=== PATIENT | male | born 1950 | race Caucasian/White ===

== ENCOUNTER 2025-04-09 11:26 | Inpatient (IN) | payer MEDICARE, BC, SELFPAY ==
[2025-04-09] VITALS (35 sets, daily range): BP systolic 78–188; BP diastolic 49–99; BMI 28.2; BMI 27.3
[2025-04-09] MEDS: NSS 1000 IV ×2 (07:20→14:31)
[2025-04-09] MEDS: ZOFRAN 4 MG IV ×2 (07:20→10:00)
[2025-04-09] MEDS: DILAUDID 1 MG IV (07:21)
[2025-04-09] MEDS: OMNIPAQUE 50 ML PO (07:21)
[2025-04-09 07:41] LABS: AST (SGOT) 24 U/L (17-59); Albumin 4.0 g/dl (3.5-5.0); Alkaline Phosphatase 196 U/L (38-126); Blood Urea Nitrogen 30 mg/dl (9-20); Calcium 9.5 mg/dl (8.4-10.2); Carbon Dioxide 25 mmol/L (22-30); Chloride 99 mmol/L (98-107); Estimated Creatinine Clearance 51 ml/min; Glucose 237 mg/dl (70-99); Hematocrit 43.0 % (39.0-52.0); Hemoglobin 13.1 g/dL (13.0-18.0); Lipase 58 U/L (23-300); Mean Corp Hgb Conc. 30.5 g/dL (33.0-37.0); Mean Corpuscular Volume 88.3 fL (80.0-94.0); Platelet Count 206 10^3/uL (130-400); Potassium 3.4 mmol/L (3.5-5.1); Red Cell Dist. Width 16.4 % (11.5-14.5); Sodium 138 mmol/L (135-145); Total Protein 6.9 g/dl (6.3-8.2); eGFR 53.40
[2025-04-09 07:42] LABS: INR 1.43; PT 17.6 Sec (11.4-14.6)
[2025-04-09 08:10] LABS: ALT (SGPT) 31 U/L (0-50)
[2025-04-09 08:37] LABS: Nucleated Red Blood Cells % 0 % (-)
--- NOTE | 2025-04-09 10:24 | ED.GENMED ---
History of Present Illness
General
Chief Complaint: Abdominal Pain
Source: patient
Time Seen by Provider: 04/09/25 07:04
History of Present Illness
History of Present Illness:
Note:
CHIEF COMPLAINT(S)
Abdominal pain
HISTORY OF PRESENT ILLNESS
The patient is a 74-year-old male with a history of chronic pancreatitis, multiple abdominal surgeries including gallbladder removal, and gastrointestinal complications requiring bypass surgery. He presents with abdominal pain that began on
night and persists. The pain is described as severe, with a subjective rating of eight or nine out of ten. The patient denies hematochezia or melena but reports a history of dark vomit. He has experienced significant weight loss in the past,
attributed to pancreatitis. He was last admitted to [facility] approximately one month ago for similar symptoms and was diagnosed with a small bowel obstruction at that time. There are concerns about altered gastrointestinal anatomy due to
prior surgeries.
Additional historian
Spouse states that he has had small bowel obstruction in the past.
Past medical history
Chronic pancreatitis, pancreatic pseudocyst, common bile duct obstruction and stricture, small bowel stricture, small bowel obstruction, diabetes, hypertension
REVIEW OF SYSTEMS
- Gastrointestinal: Abdominal pain, history of pancreatitis, prior surgeries including gallbladder removal, dark vomit.
- Neurological: Alert and oriented.
PHYSICAL EXAM
General: Alert, no acute distress.
Skin: Warm, dry.
Head: Normocephalic, atraumatic.
Neck: Supple, trachea midline.
Eye Ears, Nose, Mouth and Throat: Oral mucosa moist.
Cardiovascular: Heart regular, no lower extremity edema.
Respiratory: Non-labored respirations.
Gastrointestinal: Moderate mid abdominal tenderness, mild distension, absent bowel sounds
Back: Normal range of motion, normal alignment.
Musculoskeletal: Normal range of motion, normal strength.
Neurological: Alert and oriented to person, place, time, and situation, no focal neurological deficit observed.
Psychiatric: Cooperative, appropriate mood and affect.
PLAN
1. Administer pain medication for abdominal pain management.
2. Administer antiemetic medication for nausea.
3. Initiate intravenous fluid therapy.
4. Perform abdominal imaging to evaluate for bowel obstruction or other complications, including administering oral contrast if tolerated.
5. Monitor bowel sounds and abdominal symptoms.
DIFFERENTIAL DIAGNOSIS
The Differential Diagnosis includes, in no particular order and is not limited to:
1. Small bowel obstruction
2. Pancreatitis flare
3. Peptic ulcer disease
4. Gastrointestinal bleeding
5. Intestinal ischemia
6. Adhesions or scar tissue-related obstruction
7. Gastric outlet obstruction
8. Biliary tract disease
9. Abdominal aneurysm
10. Ruptured visceral organ
CARE-UPDATE
04/09/25 - :29
Discussed acute small bowel obstruction with Dr. Small from surgery, noting concern for ischemia indicated by french venous gas.
CARE-UPDATE
04/09/25 - :36
Reviewed patients history, noting previous ERCP in March 2025 revealed continued common bile duct stricture. Patient currently has a stent in place within the common bile duct.
Disposition:
SUMMARY OF ENCOUNTER
A 74-year-old male with a significant medical history, including small bowel obstruction and complications with stent obstructions, presented to the emergency department with complaints of vomiting and abdominal pain. Upon evaluation, the patient
was found to have an acute small bowel obstruction with associated ischemia. The patient had not taken rivaroxaban (Xarelto) for four days. After reviewing old records from [facility] and discussing the situation with the surgery
team, the attending physician reviewed CT images and noted concerns for ischemia. Emergency department management included ordering broad-spectrum antibiotics and placing a nasogastric (NG) tube.
DISPOSITION
Admit to general surgery service for further evaluation and management.
ASSESSMENT
The patient presents with an acute small bowel obstruction complicated by ischemia.
EMERGENCY TREATMENTS ADMINISTERED
Broad-spectrum antibiotics were ordered, and an NG tube was placed.
MANAGEMENT OF THE PATIENTS CARE WAS DISCUSSED WITH
The case was discussed with the surgery team, who were reviewing the CT images. The situation was also discussed with the hospitalist team.
PLAN
Admit to general surgery for further evaluation of the small bowel obstruction and management of potential ischemia.
INDEPENDENT REVIEW OF LABS AND INTERPRETATION OF TESTS
- My independent review of the CBC is as follows: Serum white count is 12,000, indicating leukocytosis. Platelets are normal.
- My independent review of basic metabolic panel (BMP) indicates a slight elevation in creatinine at 1.4 and hyperglycemia with glucose at 237. BUN was indirectly noted as normal.
- My independent review of the blood type is O positive.
- Lactic acid results are pending.
MEDICATION RECONCILIATION
- Rivaroxaban (Xarelto) was not taken for four days by the patient prior to admission.
MEDICAL DECISION MAKING
- Chronic conditions affecting care: Chronic pancreatitis, small bowel obstruction, gastrointestinal surgeries including gallbladder removal, and stent obstructions.
- Differential Diagnosis includes: 1. Small bowel obstruction 2. Pancreatitis flare 3. Peptic ulcer disease 4. Gastrointestinal bleeding 5. Intestinal ischemia 6. Adhesions or scar tissue-related obstruction 7. Gastric outlet obstruction 8. Biliary
tract disease 9. Abdominal aneurysm 10. Ruptured visceral organ.
- Data:
Category 1
- Reviewed old records from [facility] on the patients wifes phone.
Category 3
- Discussion of management with the surgery team currently reviewing CT images and with the hospitalist team regarding admission.
-Risk:
-Decision regarding admission: Patient admitted for higher level of care under surgical team due to risk of complications from acute bowel obstruction and ischemia.
-Prescription medication was not adjusted due to current acute clinical scenario.
DIAGNOSIS
- Acute small bowel obstruction, K56.69
- Intestinal ischemia, K55.029
- Hyperglycemia
- Renal insufficiency
Phy Exam
Physical Exam
Physical Exam:
.
Course
Orders/Labs/Results
Orders:
Orders
04/09/25 07:07
IV Insert/Care/Rem.- Treatment PRN
04/09/25 07:09
Complete Blood Count/With Diff Urgent
Comprehensive Metabolic Panel Urgent
Lipase Urgent
Comment: ADD ON
Prothrombin Time Urgent
04/09/25 07:10
Add On- LAB Urgent
Tests Added?: lipase
04/09/25 07:17
CT Abd/pel W Iv And Oral Contr Urgent
Comment:
Reason For Exam: mid abd pain, vomiting, h/o 'small bowel bypass'
Iohexol [Omnipaque] See Protocol PO NOW STA
04/09/25 07:18
0.9% Sodium Chloride 1000 ml [Nss] 1,000 ml IV BOLUS
HYDROmorphone [Dilaudid] 1 mg IV NOW STA
Ondansetron Injectable [Zofran] 4 mg IV NOW STA
04/09/25 07:46
Type+Screen Urgent
BBK Wristband Number:
04/09/25 09:38
Ondansetron Injectable [Zofran] 4 mg IV NOW STA
04/09/25 10:23
NG Tube [GI tube insertion- Treatment] ONCE
Lactic Acid Urgent
04/09/25 10:26
Piperacillin/Tazo 3.375 Gram [Zosyn] 3.375 gram in 50 ml IV NOW
Abnormal Lab Results
04/09/25
07:09
WBC 12.0 H 10^3/uL
(4.8-10.8)
MCH 26.9 L pg
(27.0-31.0)
MCHC 30.5 L g/dL
(33.0-37.0)
RDW 16.4 H %
(11.5-14.5)
Abs Immat Gran (auto) 0.9 H 10^3/uL
(0-0.05)
Absolute Neuts (auto) 9.5 H 10^3/uL
(1.4-6.5)
Immature Gran % 7.6 H %
(0-0.5)
Neutrophils % 79.0 H %
(42.2-75.2)
Lymphocytes % 9.8 L %
(20.5-51.1)
PT 17.6 H Sec
(11.4-14.6)
Potassium 3.4 L mmol/L
(3.5-5.1)
BUN 30 H mg/dl
(9-20)
Creatinine 1.4 H mg/dL
(0.7-1.3)
Glucose 237 H mg/dl
(70-99)
Alkaline Phosphatase 196 H U/L
(38-126)
04/09/25 07:09
04/09/25 07:09
Vital Signs
Initial and Last Documented VS:
Initial Vital Signs
Temp Pulse Resp BP Pulse Ox
97.7 F 119 18 78/49 100
04/09/25 06:53 04/09/25 06:53 04/09/25 06:53 04/09/25 06:53 04/09/25 06:53
Last Documented Vital Signs
Temp Pulse Resp BP Pulse Ox
97.7 F 84 17 188/99 95
04/09/25 06:53 04/09/25 10:12 04/09/25 10:12 04/09/25 10:12 04/09/25 10:25
*Pulse Oximetry
SaO2: 95
Oxygen Mode of Delivery: Room air
Patient hypoxic: no
*Critical Care Note
Total Time (30-74mins, 75-104mins- exclusive of procedures): 35 minutes
ED Attending Note
-
Portions of this chart may have been created with voice recognition software.� Occasional wrong word or��sound alike� substitutions may have occurred due to the inherent limitations of voice recognition software.
Discharge Plan
Departure
Patient Disposition: Admit
Date of Disposition: 04/09/25
Time of Disposition: 10:37
Admit to: IMU
Presentation/result/management discussed w/ accepting MD/DO: Hospitalist
Discharge Problem:
acute small bowel obstruction, Acute ischemia of small intestine, Acute hyperglycemia
Referrals:
TORIE PENNINGTON [Other]
Interventions
Interventions:
*Risk Screen - Suicide Last Done: 04/09/25 06:53
*General Assessment Last Done: 04/09/25 06:53
*Neglect/Abuse Screening Last Done: 04/09/25 07:11
*ED- Fall Risk Assessment Last Done: 04/09/25 07:11
*ED COVID-19 Vaccine History Last Done: 04/09/25 06:53
*ED Influenza Vaccine History Last Done: 04/09/25 06:53
OW-Dzguii-Cwlcswlaxf Assessment Last Done: 04/09/25 07:11
Discharge Date and Time
Print Language: KISWAHILI
[2025-04-09] MEDS: ZOSYN 50 IV ×2 (11:15→17:52)
--- NOTE | 2025-04-09 11:16 | HPS.HSE ---
Family Physician
-
Family Physician: TORIE PENNINGTON
Chief Complaint
-
Abdominal pain
History of Present Illness
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
nausea, vomiting. He described the pain was severe and the intensity grew over the next 2 days. He denies hematochezia, melena, fever, chills. Last night he had at least 10 episodes of dark-colored vomiting. He was admitted to [facility] a month ago with similar symptoms and was found to have small bowel obstruction at that time. He stopped taking Xarelto 2 days ago.
Medical History
Past Medical History
Past Medical History: Reports Other (Chronic pancreatitis, pancreatic pseudocyst, common bile duct obstruction and stricture, small bowel stricture, small bowel obstruction, diabetes, hypertension)
Past Surgical History: Reports Cholecystectomy and Other (multiple abd surgeries, recent bile duct stent placement in [place] at [facility] )
Social History
Tobacco: Non-smoker
Alcohol: Former
Drug: None
Personal:
Living: With Family
Employment: Retired
Family History
Family History: Not pertinent
Allergies / Home Medications
Allergies reflects when Allergies were last updated in [employer].
Home Medications with original date entered in [employer]
Allergy/Medication List:
Allergies
Allergy/AdvReac Type Severity Reaction Status Date / Time
Vmapohj-BVB-IlY Reductase Allergy Unknown Verified 04/09/25 06:55
Inhibitor
Review of Systems
-
History Source: Patient and Family
A 12 point ROS was completed and negative except as noted: Yes
Physical Exam
Vital Signs
Vital Signs
Temp Pulse Resp BP Pulse Ox
97.7 F 84 17 188/99 95
04/09/25 06:53 04/09/25 10:12 04/09/25 10:12 04/09/25 10:12 04/09/25 10:25
Physical Exam
General: Comfortable and Conversant
HEENT: NormoCephalic and Anicteric
Respiratory: Clear
Cardiac: S1/S2 and Regular Rhythm
GI: Soft, Non Tender, Non Distended and Other (Hypoactive bowel sound, NG tube draining black color fluid )
Musculoskeletal: No Edema
Skin: Warm and Dry
Neuro: AO x 3
Hematologic/Lymphatic: No Lymphadenopathy
Psych: Calm
Laboratory Results
-
04/09/25 07:09
04/09/25 07:09
Laboratory Results
PT 17.6 Sec (11.4-14.6) H 04/09/25 07:09
INR 1.43 04/09/25 07:09
Total Bilirubin 0.5 mg/dl (0.2-1.3) 04/09/25 07:09
AST 24 U/L (17-59) 04/09/25 07:09
ALT 31 U/L (0-50) 04/09/25 07:09
Alkaline Phosphatase 196 U/L (38-126) H 04/09/25 07:09
Lipase 58 U/L (23-300) 04/09/25 07:09
Data Reviewed
-
CT Scan: Report Reviewed by me and Discussed with Physician
Lab Data: Labs Reviewed by me and Discussed with Physician
Impression/Plan
-
IMPRESSION:
Sepsis secondary to acute small bowel ischemia
Acute small bowel obstruction
Lactic acidosis
Acute kidney injury
Hypokalemia
Elevated alkaline phosphatase level
History of DVT/PE
History of chronic pancreatitis
History of hypertension
PLAN:
Sepsis secondary to acute small bowel ischemia
Acute small bowel obstruction
Admit to ICU
Suspect adhesions from prior surgeries, altered GI anatomy, small bowel strictures
Afebrile, elevated white count [id number]
NPO, bowel rest
General Surgery aware, patient will be taken for emergent surgery soon
IV fluids, IV Zofran as needed
Start IV Zosyn
IV Dilaudid for pain control
Check blood culture
Continue NG tube
Trend H&H, blood consent given, transfuse blood with sudden drop of HB
Consult culinary assistant
Lactic acidosis
Due to ischemic bowel
Trend lactic acid levels
Acute kidney injury
Creatinine 1.4, no records of baseline creatinine
Monitor BMP
Hypokalemia
K 5.3
Montior K
Elevated alkaline phosphatase level
Normal AST ALT level
Monitor alk phos
History of DVT/PE
Hold all anticoagulants
SCD for DVT prophylaxis
Essential hypertension
Hold oral medication for surgery
History of Chronic pancreatitis
Full code
SCD
NPO
--- NOTE | 2025-04-09 11:36 | CON.GS ---
Addendum entered and electronically signed by Oscar Small MD 04/09/25 12:25:
I saw and examined the patient.
The [employer] Manager's note was reviewed and I agree with the note.
Comment: 3 days of abd pain, no flatus or BM, recent episode similar 1 month ago managed non-op, 7 months s/p lap GI bypass for duo stricture; NGT with 2.5L+ outpts, leukocytosis noted, HTN noted, CT with pneumatosis and PV gas, suspect closed loop
SBO with ischemia, emergently to OR for ex lap possible bowel resection, risks discussed in detail including btu not limited to pain, bleeding, infection, anastomotic leak/stricture, future bowel obstructions, injury to intra-abdominal structures
and pt freely signed the consent. We discussed likely post-op course including ileus, need for NGT, NPO status, pt verbalized understanding.
Original Note:
Consultation
-
Date/Time Consultation Performed: 04/09/25 1130
Medical History
-
Chief Complaint: n/v
History of Present Illness:
Mr Pritchard is a 74 yo male visiting from [place] with a h/o DM, LLE DVT on Xarelto for severe pancreatitis about 3 years ago complicated by CBD obstruction and duodenal stricture. CBD stents have been maintained with recent change earlier this month
in [place] for occlusion. He developed a bowel obstruction a little less than 1 year ago secondary to duodenal stricture and after several attempts at dilating the area as well as being maintained with a feeding tube for nutrition, he was
eventually taken for laparoscopic bypass with removal of the feeding tube at that time. A concurrent cholecystectomy was also preformed at the same time. He has had several SBO's requiring hospitalization that have resolved without surgery since
that time. Shortly after Thanksgiving dinner, he developed nausea, vomiting and upper abdominal pain. He denies fevers or chills. He has not eaten since that time or taken his anticoagulation. His last BM was Thanksgiving morning with none since. He
has passed very little flatus since that time as well. Symptoms have progressively worsened causing him to present for evaluation. Prior to exam, an NGT was placed in the ED for >2.5L of bilious outputs. He is currently feeling much better with
resolution of nausea and pain.
Past Medical History
Past Medical History: HTN, Hypercholesterolemia, NIDDM and Other (CKD, Severe pancreatitis c/b cbd obstruction with stents and duodenal scarring/stricture, SBO's, prior feeding tube, BPH, LLE DVT)
Past Surgical History: Bowel Resection (laparoscopic bypass of duodenal stricture), Cholecystectomy and Other (Metal CBD stent; last exchanged on 03/15/25)
Social History
Tobacco: Other (prior cigar smoker)
Alcohol: Former (quit 10 years ago)
Personal:
Living: With Family (from [place])
Family History
Family History: Reviewed & Not Pertinent
Allergies / Home Medications
Allergy/AdvReac Type Severity Reaction Status Date / Time
[id number]-[id number] Reductase Allergy Unknown Verified 04/09/25 06:55
Inhibitor
Review of Systems
-
History Source: Patient and Family
All other systems: Negative unless noted
A 10 point review of systems was completed, and was negative except as per HPI.
Physical Exam
Vital Signs
Temp Pulse Resp BP Pulse Ox
97.7 F 101 15 135/74 95
04/09/25 06:53 04/09/25 11:00 04/09/25 11:00 04/09/25 11:00 04/09/25 10:25
04/08/25 04/09/25 04/10/25
06:59 06:59 06:59
Actual Weight 91.8 kg
Body Mass Index (BMI) 28.2
Lab Results
04/09/25 07:09
04/09/25 07:09
WBC 12.0 10^3/uL (4.8-10.8) H 04/09/25 07:09
Hgb 13.1 g/dL (13.0-18.0) 04/09/25 07:09
Hct 43.0 % (39.0-52.0) 04/09/25 07:09
Plt Count 206 10^3/uL (130-400) 04/09/25 07:09
Abs Immat Gran (auto) 0.9 10^3/uL (0-0.05) H 04/09/25 07:09
Neutrophils % 79.0 % (42.2-75.2) H 04/09/25 07:09
Physical Exam
General: Well Developed and Well Nourished
HEENT: Normocephalic and Moist Mucous Membranes
Respiratory: Non Labored Respirations
GI: Soft, Non Tender and Non Distended
Neuro: Awake, Alert and AO x 3
Psych: Calm
Data Reviewed
-
CT Scan: Image Personally Visualized and interpreted, Report Reviewed by me, Discussed with Physician, Discussed with Nurse, Discussed with Patient and Discussed with Family
Labs: Labs Reviewed by me, Discussed with Physician, Discussed with Patient and Discussed with Family
Assessment / Plan
-
74 yo male with a h/o LLE in 2019 on Xarelto (LD 04/06) pancreatitis with CBD stents (last change this month), lap bypass for duodenal stricture with cholecystectomy and removal of feeding tube who presents for n/v x2 days with increasing abdominal
pain. CT imaging consistent with a proximal small bowel obstruction with jejunal pneumatosis noted. Mild amount of portal venous air in the left lobe of the liver tracking from the bowel. Significant gastric/proximal small bowel distention noted.
NGT placed for >2.5L of output with relief in pain and nausea. Mild tachycardia, BP stable. No fevers. Mild leukocytosis. Lactic acid elevated to 2.5. Mild elevation in alk phos, LFT's otherwise nl. Bun/Cr mildly elevated, mild hypokalemia. Blood cx
pending.
Plan:
Admit to medical service
NPO for emergent OR for exploratory laparotomy and possible SBR if ischemic bowel present
Zosyn given in the ED
Trend labs/exam
C/W full dose AC on hold
--- NOTE | 2025-04-09 12:54 | CON.INTV ---
Consultation
Consultation Request
Date/Time Consultation Requested: 04/09/2025 - 1246
Date/Time Consultation Performed: 04/09/2025 - 1253
Requesting Provider: Dr. Ambrosio
Performing Provider: Dr. Oneil
Reason for Consultation: Severe acute SBO with ischemia s/p OR
Medical History
-
Chief Complaint: Abdominal pain
History of Present Illness:
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
with abdominal pain. Last bowel movement was on morning and he is passing very little flatus. CT abdomen/pelvis showed severe acute SBO with small bowel ischemia, with a severely distended stomach and minimal abdominal/pelvic ascites.
NGT placed in the ER with 2.5 L plus of bilious output drained. General surgery consulted and patient emergently brought to the OR for ex lap with lysis of adhesions, with EBL 5 cc and no immediate complications. Intraoperative findings included
small intestine and mid ileum volvulus with adhesive band at the TI. The bowel was detorsed manually and the adhesion was lysed; there was patchy ischemia and 3 small areas involving the small bowel. Patient admitted to the ICU for further care
and artillery or naval gunfire observer service consulted for additional management/recommendations.
When I saw the patient he was resting in bed in no acute distress, with NGT in place on suction. Patient's , Floridalma, present at bedside and all questions were answered. Current heart rate 91, BP 150/70 and he is saturating 96% on room air. He
feels well, mild discomfort at the ex lap site and mid abdomen, otherwise he denies abdominal pain at rest, chest pain, shortness of breath, MEDEIROS, nausea, fevers or chills. Patient and his are originally from [place], and they are here visiting
their daughter. The patient says he was hospitalized 1 month ago for similar symptoms of abdominal pain. They kept him NPO and he was given a 'laxative,' which greatly helped his symptoms. He says that the doctors there did not recommend an
invasive intervention, hence surgery was deferred at the time. The patient has had continued abdominal pain since that hospitalization about a month ago.
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
PSHx: Laparoscopic bypass of duodenal stricture (August 2023 at [facility]), cholecystectomy, metal CBD stent (last exchange 03/15/2025 in [place]), jejunostomy tube placement (January 2023, removed August 2023)
Past Medical History
Past Medical History: Other (Above as per HPI)
Past Surgical History: Other (Above as per HPI)
Social History
Tobacco: Former Smoker (Cigars)
Alcohol: Former (Quit approximately 10 years ago)
Drug: None
Personal: ( = Floridalma)
Living: With Family
Family History
Family History: Reviewed & Not Pertinent
Allergies / Home Medications
Allergies
Allergy/AdvReac Type Severity Reaction Status Date / Time
Dcirgvv-VYI-OpP Reductase Allergy Unknown Verified 04/09/25 06:55
Inhibitor
Home Medications
�Medication �Instructions �Recorded �Confirmed �Last Taken �Type
acetaminophen 325 mg tablet 650 mg PO Q6HPRN PRN mild pain 04/09/25 04/09/25 04/08/25 History
(Tylenol)
cholecalciferol (vitamin D3) 25 25 mcg PO DAILY Supplement 04/09/25 04/09/25 04/07/25 History
mcg (1,000 unit) tablet (Vitamin
D3)
insulin aspart U-100 100 unit/mL 5 sliding scale dose SC AC Diabetes 04/09/25 04/09/25 04/09/25 History
(3 mL) subcutaneous pen (Novolog
FlexPen U-100 Insulin aspart)
insulin glargine 100 unit/mL (3 10 unit SC DAILY Diabetes 04/09/25 04/09/25 04/07/25 History
mL) subcutaneous pen (Lantus
Solostar U-100 Insulin)
lisinopril 10 mg tablet 15 mg PO DAILY Heart 04/09/25 04/09/25 04/07/25 History
Disease/Condition
ofloxacin 0.3 % eye drops 1 drp BOTH EYES QID Eye Condition 04/09/25 04/09/25 04/06/25 History
rivaroxaban 20 mg tablet (Xarelto) 20 mg PO QPM Blood Clot 04/09/25 04/09/25 04/06/25 History
Prevention/Tx
tamsulosin 0.4 mg capsule 0.4 mg PO QPM Urinary Issue 04/09/25 04/09/25 04/07/25 History
Review of Systems
-
History Source: Patient
All other systems: Negative unless noted
Vitals / Labs / Diagnostic Testing
Vital Signs
Temp Pulse Resp BP Pulse Ox
97.7 F 101 15 135/74 95
04/09/25 06:53 04/09/25 11:00 04/09/25 11:00 04/09/25 11:00 04/09/25 10:25
Lab Data
04/09/25 07:09
04/09/25 07:09
Laboratory Results
04/09/25
07:09
PT 17.6 H
INR 1.43
Diagnostic Testing:
Physical Exam
-
HEENT: Normocephalic and Anicteric
Cardiovascular: S1/S2 and Peripheral Edema (negative)
Respiratory: Wheeze (negative), Rales (negative), Rhonchi (negative), Non-Labored Respirations and Accessory Resp Muscle Use (negative)
GI: Soft, Non Distended, Tender (Mid-abdomen at surgical site), Normal Bowel Sounds, Other (Mid abdominal dressing) and Other (NGT on suction)
Neurology: Awake, Alert, Oriented and Tremors (negative)
Skin: Warm and Dry
General: Respiratory Distress (negative), Comfortable, Fever (negative) and Chills (negative)
Assessment
-
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
presents with abdominal pain. Last bowel movement was on Thanksgi morning and he is passing very little flatus. CT abdomen/pelvis showed severe acute SBO with small bowel ischemia, with a severely distended stomach and minimal abdominal/pelvic
ascites. NGT placed in the ER with 2.5 L plus of bilious output drained. General surgery consulted and patient emergently brought to the OR for ex lap. Patient admitted to the ICU for further care and artillery or naval gunfire observer service consulted for additional
management/recommendations.
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
pancreatic pseudocyst
Impression:
#Abdominal pain in setting of severe acute SBO with small bowel ischemia s/p emergent exploratory laparotomy with lysis of adhesions (POD #0)
#Volvulus of small intestine and mid ileum s/p manual bowel detorsion with TI band adhesion s/p lysis with patchy ischemia and 3 small areas noted intraoperatively (OR date: 04/09/2025)
#Sepsis due to above
#Coffee-ground emesis possibly due to small bowel ischemia in the setting of above
#History of severe pancreatitis complicated by CBD obstruction s/p metal stent (last exchange 03/15/2025) and duodenal scarring/stricture s/p laparoscopic bypass with removal of previous J-tube
#Lactic acidosis
#Leukocytosis
#Elevated creatinine likely due to LYRIC vs CKD
#DM type II complicated by hyperglycemia
#History of LLE DVT on Xarelto
#History of BPH
#Nephrolithiasis with small bilateral nonobstructing intrarenal calculi seen on CT A/P on 04/09/2025
Plan:
- Patient emergently went to OR for ex-lap given suspected closed-loop acute SBO with ischemia
- Operative note was reviewed in detail, with intraoperative findings including volvulus of small intestine and mid ileum with adhesive band at TI. Bowel was detorsed manually, band adhesion was lysed, and bowel appeared distended with 3 small
areas of patchy ischemia although appeared viable. There were no immediate complications and patient was extubated prior to coming here to the ICU
- Postoperative management per surgery
- Pain control
- Keep NPO per surgery
- Continue IVF with NS 0.9% at 100cc/hr
- Maintain SpO2 >90-94% using supplemental O2 if needed
- prn nebulized bronchodilators - not currently bronchospastic
- Incentive spirometer encouraged 10x per hour for at least 4 hrs a day
- Continue with broad-spectrum antibiotics, with Zosyn
- If patient has clinical deterioration, then would add micafungin and consult ID
- Follow-up blood culture
- Maintain MAP>65 (not requiring vasopressors at this juncture)
- Trend lactate until <2mmol/L
- Trend LFTs (ALP)
- Replete electrolytes with K>4, Mg>2
- Maintain euglycemia with goal BG 140-180; check A1C
- Trend H/H and transfuse if needed to keep Hb>7g/dL; keep plt>50k (given post-operative status)
- Stress ulcer: not indicated - -> stop PPI
- DVT ppx: SCDs for now given post-operative status; will defer to surgery when we can start chemical DVT ppx
Continue to monitor this patient in the ICU; if patient remains stable then will downgrade out of ICU tomorrow morning, if surgery and hospitalist agree.
Total time spent today was 79 minutes for this encounter. Time includes reviewing laboratory test/imaging results, reviewing pertinent medical records, obtaining and reviewing medical history, performing an appropriate exam, ordering medications,
tests and procedures. Time also includes documentation of this encounter, coordinating patient care and communicating with other healthcare professionals. Total time does not include separately billed tests performed on this date of service.
CT abdomen/pelvis with IV and oral contrast 04/09/2025:
1. SEVERE ACUTE SMALL BOWEL OBSTRUCTION with a transition point in the right midabdomen (possibly an obstructing adhesive band or internal hernia).
2. ACUTE SMALL BOWEL ISCHEMIA with pneumatosis in left-sided jejunal small bowel loops.
3. Mild portal venous air in the left lobe of the liver secondary to small bowel ischemia.
4. Severely distended stomach.
5. Upper abdominal gastrojejunal anastomosis.
6. Biliary stents in place.
7. Moderate to severe diffuse hepatic steatosis.
8. Minimal abdominal and pelvic ascites.
9. Small bilateral nonobstructing intrarenal calculi.
10. Severely enlarged prostate gland.
11. Minimal bilateral pleural effusions.
[2025-04-09 13:04] LABS: B.E. - POC 3.2 mmol/L; Glucose - POC 319 mg/dl (70-99); HCO3 - POC 28 mmol/L (21-28); Hematocrit - POC 34 % PCV (42-52); Hemodilution- POC No; Hemoglobin Calculated - POC 11.4; Ionized Calcium - POC 1.13 mmol/L (1.15-1.33); Lactate - POC 1.91 mmol/L (0.36-0.75); O2 Saturation %Calculated-POC 94.7 % (94-98); PCO2 - POC 42 mmHg (35-48); PO2 - POC 72 mmHg (83-108); Potassium - POC 4.1 mmol/L (3.5-5.1); Sodium - POC 140 mmol/L (136-145); Specimen Type - POC Venous; pH - POC 7.43 (7.35-7.45)
--- NOTE | 2025-04-09 13:56 | W.IMMPOSTOP ---
Surgical Immed Post Op Note
-
Primary Surgeon: Geovanny
Assisting: Iza LLOYD
Pre-op Diagnosis: Closed loop small bowel obstruction
Post-op Diagnosis: Same, small bowel volvulus
Procedure Performed: Exploratory laparotomy, lysis of adhesions
Anesthesia Type: GETA
Specimen / Cultures: None
Estimated Blood Loss: 5cc
Complications: None immediate
Operative Findings: loop gastro-jejunostomy identified; volvulus of small intestine and mid-ileum, adhesive band at terminal ileum; bowel detorsed manually, band adhesion at terminal ileum lysed, bowel run from ligament of treitz to
gastro-jejunostomy and then to terminal ileum, bowel was distended with 3 small areas of patchy ischemia (<25% of circumference) but viable; nasogastric tube palpated in stomach, sepra film deployed
[2025-04-09 14:07] LABS: Glucose - Point of Care 246 mg/dl (70-99)
[2025-04-09] MEDS: NOVOLOG vial 2 UNITS SC (14:14)
[2025-04-09] MEDS: DILAUDID 0.25 MG IV (14:25)
[2025-04-09] MEDS: KCL 270 MEQ IV (14:31)
[2025-04-09] MEDS: NSS (PRESERVATIVE FREE) 20 ML IV (15:12)
[2025-04-09] MEDS: PROTONIX IV 80 MG IV (15:12)
[2025-04-09] MEDS: OFIRMEV 100 IV ×2 (15:22→19:30)
--- NOTE | 2025-04-09 16:00 | PTCARENOTE ---
Received pt via bed from PACU into rm [id number] @ approx 1500. Pt. AAOx3, reports mild-moderate post op pain in abd- medicated in PACU- see JUL. SR on monitor. SpO2 96% on RA. Hypoactive BS, abd soft/round/tender. L nare NGT to LIS w mod amts of
black/brown drainage; flushed per orders; no marking on tube itself, measured 38 cm from nose to end of tube. NPO ex ice chi[s. Denies n/v. Devine catherter d/c'd in OR; urinal placed w in reach. Midline abd incision c/d/i. #20 R AC w NSS @
100mL/hr and K+ rider- see JUL. #16 L FA patent, dressing c/d/i. updated via phone and arrived to bedside. Pt. instructed on how to report care concerns and call martinez w in reach.
[2025-04-09 16:31] LABS: Magnesium 2.1 mg/dl (1.6-2.3)
[2025-04-09 17:08] LABS: APTT 27.8 Sec (23.4-35.0)
[2025-04-09 18:02] LABS: Glucose - Point of Care 270 mg/dl (70-99)
[2025-04-09 18:04] LABS: Hematocrit 32.3 % (39.0-52.0); Hemoglobin 10.5 g/dL (13.0-18.0)
[2025-04-09] MEDS: NOVOLOG FLEXPEN-HIGH RESISTANCE 7 UNITS SC (18:06)
--- NOTE | 2025-04-09 20:00 | PTCARENOTE ---
Assumed care at 1900. Patient with NGT to left nare with brown/black drainage. Hypoactive bowel sounds. Denies pain or nausea. NSR on the monitor. NS IVF infusing with abx. Midline abd incision intact with no drainage. Urinating in the urinal
without difficulty.
[2025-04-09] MEDS: LANTUS 0.1 UNITS SC (20:39)
[2025-04-09 20:50] LABS: Glucose - Point of Care 250 mg/dl (70-99)
[2025-04-10] VITALS (15 sets, daily range): BP systolic 118–159; BP diastolic 56–86; BMI 27.7
--- NOTE | 2025-04-10 | PTCARENOTE ---
No change from previous assessment except midline abd incision with small amount of bloody drainage. NSR on the monitor. No complaints of pain.
[2025-04-10] MEDS: NOVOLOG FLEXPEN-HIGH RESISTANCE 4 UNITS SC (00:01)
[2025-04-10 00:10] LABS: Glucose - Point of Care 233 mg/dl (70-99)
[2025-04-10] MEDS: OFIRMEV 100 IV ×4 (01:11→20:16)
[2025-04-10 04:30] LABS: ALT (SGPT) 19 U/L (0-50); AST (SGOT) 17 U/L (17-59); Albumin 2.6 g/dl (3.5-5.0); Alkaline Phosphatase 117 U/L (38-126); Blood Urea Nitrogen 41 mg/dl (9-20); Calcium 8.4 mg/dl (8.4-10.2); Carbon Dioxide 31 mmol/L (22-30); Chloride 104 mmol/L (98-107); Estimated Creatinine Clearance 42 ml/min; Glucose 170 mg/dl (70-99); Magnesium 2.2 mg/dl (1.6-2.3); Potassium 3.7 mmol/L (3.5-5.1); Sodium 138 mmol/L (135-145); Total Protein 5.1 g/dl (6.3-8.2); eGFR 42.30
--- NOTE | 2025-04-10 04:30 | PTCARENOTE ---
No change from previous assessment except placed on 2 liters NC. Patient desats to mid 80s while asleep. No abdominal pain throughout the entire shift. NGT with black/green drainage. Small amount of drainage on abd dressing marked at site.
[2025-04-10 05:09] LABS: Hematocrit 29.4 % (39.0-52.0); Hemoglobin 9.5 g/dL (13.0-18.0); Mean Corp Hgb Conc. 32.3 g/dL (33.0-37.0); Mean Corpuscular Volume 86.7 fL (80.0-94.0); Platelet Count 113 10^3/uL (130-400); Red Cell Dist. Width 17.1 % (11.5-14.5)
[2025-04-10] MEDS: ZOSYN 50 IV ×4 (05:14→17:29)
[2025-04-10] MEDS: NOVOLOG FLEXPEN-HIGH RESISTANCE 2 UNITS SC ×2 (05:50→12:19)
[2025-04-10] MEDS: KCL 160 MEQ IV (05:51)
[2025-04-10 06:00] LABS: Glucose - Point of Care 194 mg/dl (70-99)
--- NOTE | 2025-04-10 08:24 | PTCARENOTE ---
recd pt 0715 handoff with previous shift. Asleep, awakens easily, assessment as documented. Notes pain very manageable to minimal. Using IS with minimal encouragement. Agreeable to get OOB. Few ice chips per order. Denies passing flatus, few
bowel sounds with NG clamped appreciated. Aware of plans for the day. No distress.
--- NOTE | 2025-04-10 08:27 | W.PN.INTV ---
Today's Communication / Plan
Recommendations
Postoperative management as per general surgery
Antibiotics
IVF, assessing need for fluids daily
Keep NPO for now; surgery to clamp NGT today and possible removal tomorrow
No indication for stress ulcer prophylaxis
Has remained hemodynamically stable and lactate now normalized
Goal BG >100 and <180
Patient is stable for downgrade out of ICU to [facility]. No additional recommendations at this time. Forwarder Operator/Pulmonary service will now sign off. Please reconsult if there are any additional questions/concerns, or if patient's respiratory
status deteriorates.
Assessment
-
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
presents with abdominal pain. Last bowel movement was on morning and he is passing very little flatus. CT abdomen/pelvis showed severe acute SBO with small bowel ischemia, with a severely distended stomach and minimal abdominal/pelvic
ascites. NGT placed in the ER with 2.5 L plus of bilious output drained. General surgery consulted and patient emergently brought to the OR for ex lap. Patient admitted to the ICU for further care and cpas service consulted for additional
management/recommendations.
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
pancreatic pseudocyst
Impression:
#Abdominal pain in setting of severe acute SBO with small bowel ischemia s/p emergent exploratory laparotomy with lysis of adhesions (POD #1)
#Volvulus of small intestine and mid-ileum s/p manual bowel detorsion with TI band adhesion s/p lysis with patchy ischemia in 3 small areas seen intraoperatively (OR date: 04/09/2025)
#Sepsis due to above
#Coffee-ground emesis possibly due to small bowel ischemia in the setting of above
#History of severe pancreatitis complicated by CBD obstruction s/p metal stent (last exchange 03/15/2025) and duodenal scarring/stricture s/p laparoscopic bypass with removal of previous J-tube
#Lactic acidosis - resolved
#Leukocytosis - improving
#Elevated creatinine likely due to LYRIC vs CKD
#DM type II complicated by hyperglycemia
#History of LLE DVT on Xarelto
#History of BPH
#Nephrolithiasis with small bilateral nonobstructing intrarenal calculi seen on CT A/P on 04/09/2025
Plan:
- Patient emergently went to OR for ex-lap given suspected closed-loop acute SBO with ischemia, and transferred to ICU for post-operative monitoring
- Operative note was reviewed in detail, with intraoperative findings including volvulus of small intestine and mid-ileum with adhesive band at TI. Bowel was detorsed manually, band adhesion was lysed, and bowel appeared distended with 3 small
areas of patchy ischemia although appeared viable. There were no immediate complications and patient was extubated prior to coming here to the ICU
- Postoperative management per surgery
- Pain control
- Keep NPO per surgery
- Continue IVF with NS 0.9% at 100cc/hr - careful not to cause volume overload - assess need for IVF daily
- Maintain SpO2 >90-94% using supplemental O2 if needed
- prn nebulized bronchodilators - not currently bronchospastic
- Incentive spirometer encouraged 10x per hour for at least 4 hrs a day
- Continue with broad-spectrum antibiotics, with Zosyn
- If patient has clinical deterioration, then would add micafungin and consult ID
- Follow-up blood culture (NGTD)
- Maintain MAP>65 (not requiring vasopressors at this juncture)
- Lactate has now normalized, hence no need to continue trending at this time
- LFTs are now WNL
- Replete electrolytes with K>4, Mg>2
- Maintain euglycemia with goal BG >100 and <180; A1C: 6.6 on 04/09/2025
- Trend H/H and transfuse if needed to keep Hb>7g/dL; keep plt>50k (given post-operative status)
- Stress ulcer: not indicated - -> recommend to stop PPI
- DVT ppx: HSQ
Patient is stable for downgrade out of ICU to [facility]. No additional recommendations at this time. Forwarder Operator/Pulmonary service will now sign off. Thank you for allowing us to be involved in the care of this patient. Please reconsult if there
are any additional questions/concerns, or if patient's respiratory status deteriorates.
Total time spent today was 37 minutes for this encounter. Time includes reviewing laboratory test/imaging results, reviewing pertinent medical records, obtaining and reviewing medical history, performing an appropriate exam, ordering medications,
tests and procedures. Time also includes documentation of this encounter, coordinating patient care and communicating with other healthcare professionals. Total time does not include separately billed tests performed on this date of service.
CT abdomen/pelvis with IV and oral contrast 04/09/2025:
1. SEVERE ACUTE SMALL BOWEL OBSTRUCTION with a transition point in the right midabdomen (possibly an obstructing adhesive band or internal hernia).
2. ACUTE SMALL BOWEL ISCHEMIA with pneumatosis in left-sided jejunal small bowel loops.
3. Mild portal venous air in the left lobe of the liver secondary to small bowel ischemia.
4. Severely distended stomach.
5. Upper abdominal gastrojejunal anastomosis.
6. Biliary stents in place.
7. Moderate to severe diffuse hepatic steatosis.
8. Minimal abdominal and pelvic ascites.
9. Small bilateral nonobstructing intrarenal calculi.
10. Severely enlarged prostate gland.
11. Minimal bilateral pleural effusions.
Subjective Dataa
Subjective Data
Date of Service:
Date of Service: April 10, 2025
Chief Complaint: Forwarder Operator Follow Up
Subjective:
Patient seen this morning. Passing gas. Denies abdominal pain. NGT in place on suction. Afebrile overnight. at bedside, all questions were answered.
Review of Systems
General: Other (Negative unless mentioned above)
Objective Data
Data Reviewed
Vital Signs / I&O / Oxygen:
Vital Signs
Temp Pulse Resp BP Pulse Ox
98.1 F 79 18 144/77 96
04/10/25 07:39 04/10/25 08:00 04/10/25 08:00 04/10/25 08:00 04/10/25 08:00
Intake and Output
04/09/25 04/10/25 04/11/25
06:59 06:59 06:59
Intake Total 3560.0 / 3740.0 410 / 410
Output Total 1350 / 1350 175 / 175
Balance 2210.0 / 2390.0 235 / 235
SaO2 96
Nasal Cannula flow liters per 2
minute
Physical Exam
General: Respiratory Distress (n), Comfortable and Chills (n)
HEENT: Normocephalic and Anicteric
Cardiovascular: S1-S2 and Peripheral Edema (n)
Respiratory: Clear, Wheeze (n), Crackles (n), Rhonchi (n), Non-Labored Respirations and Stridor (n)
GI: Soft, Non Distended, Non Tender, NG Tube (On suction) and Other (hypoactive bowel sounds)
Neurology: Awake, Alert, Oriented and Tremors (n)
Skin: Warm, Dry, Cyanosis (n) and Jaundice (n)
Labs/Micro/Reports
Lab Data
04/10/25 04:11
04/10/25 03:48
Laboratory Results
04/09/25 04/09/25
15:01 16:46
APTT Cancelled 27.8
[2025-04-10 08:51] LABS: Glycohemoglobin (HgbA1c) 6.6 % (4.0-5.9)
--- NOTE | 2025-04-10 09:08 | W.PN.HOSP.TC ---
Today's Communication/Plan
-
ok to transfer to floor
Assessment / Plan
Assessment / Plan
74 years old male traveling from [place] who presented with abdominal pain and vomiting for 3 days.
Physical Exam
General: Comfortable and Conversant
HEENT: Normocephalic and Anicteric. NG tube in place.
Respiratory: Clear
Cardiac: S1/S2 and Regular Rhythm
GI: Soft, Non Tender, clean surgical site, not distended.
Musculoskeletal: No Edema
Skin: Warm and Dry
Neuro: AO x 3, non focal
Psych: Calm
A/P
#Sepsis/septic shock due to acute closed loop small bowel obstruction/ small bowel volvulus/ ischemic bowel
s/p Exploratory laparotomy, lysis of adhesions by Dr Small 04/09.
Positive lactic acidosis, now resolved. WBC is coming down. Afebrile
- post op ileus
c/w NG suction
IVF
IV Abx
IV PPI
Pain control as needed
Appreciate surgery and ICU doctors help
# Acute on CKD stage IIIb.
Will trend creatinine, continue hydration and monitor for retention. Holding lisinopril. IV fluid
# Acute blood loss anemia
Thrombocytopenia
monitor HGB
c/w PPI
# History of extensive left lower extremity DVT in 2019, has been on 20 mg of Xarelto every day. Holding anticoagulation due to bowel ischemia and surgical intervention. Ordered SQ Heparin for now.
# History of BPH, he takes Flomax
#Hypertension, he takes lisinopril 15 mg, titrated by his primary care doctor. Holding for now, add IV as needed hydralazine while n.p.o.
# Diabetes. uncontrolled BS
Increase dose of Lantus
c/w SQ NovoLog Q 6
HGB A1C 6.6
He takes Lantus 10 units and short acting NovoLog 5 to 10 units per meal as needed.
# Hypokalemia, replaced
# GI prophylaxis, DVT prophylaxis with PPI & SQ Heparin.
Transfer to the floor
Total time spent to see the patient, examined the patient, review data and lab result, discussed treatment plan with patient, nursing staff around 55 minutes
Anticipated Discharge: > 48 hours
Subjective/Interval History
-
Date of Service: April 10, 2025
No abd pain
No chest pain
No nausea
Still NG
No fevers
Objective Data
-
Labs:
Laboratory Results
04/10/25 04/10/25
03:48 04:11
WBC Cancelled 11.3 H
Hgb Cancelled 9.5 L
Hct Cancelled 29.4 L
Plt Count Cancelled 113 L D
Sodium 138
Potassium 3.7
Chloride 104
Carbon Dioxide 31 H
BUN 41 H
Creatinine 1.7 H
Glucose 170 H
Calcium 8.4
Total Bilirubin 0.5
AST 17
ALT 19
Alkaline Phosphatase 117
Vital Signs:
Vital Signs
Temp Pulse Resp BP Pulse Ox
98.1 F 79 18 144/77 96
04/10/25 07:39 04/10/25 08:00 04/10/25 08:00 04/10/25 08:00 04/10/25 08:00
I&O
04/09/25 04/10/25 04/11/25
06:59 06:59 06:59
Intake Total 3560.0 / 3740.0 410 / 410
Output Total 1350 / 1350 175 / 175
Balance 2210.0 / 2390.0 235 / 235
[2025-04-10] MEDS: PROTONIX IV 40 MG IV (09:53)
[2025-04-10] MEDS: NSS (PRESERVATIVE FREE) 10 ML IV (09:54)
--- NOTE | 2025-04-10 10:55 | W.PN.GS2 ---
Addendum entered and electronically signed by Oscar Small MD 04/10/25 13:19:
I saw and examined the patient.
[employer] note was reviewed and I agree with the note.
Comment: Clinically improving, passing flatus, ambulating, belly soft, approp ttp, incisio cdi with 2 areas of small strikethrough, OK for downgrade, NGT clamp trials
Original Note:
Today's Communication / Plan
-
NGT/IVF/NPO
Assessment / Plan
-
74 yo male presenting with closed loop small bowel obstruction with small bowel volvulus now POD #1 ex lap with nandini
AFVSS
Leukocytosis improved
Cr increased from prior, suspect prerenal
Acute anemia noted, suspect secondary to hemodilution as intraoperative blood loss was minimal
Following expected post op course, await bowel recovery
Plan:
Ok for transfer to [facility] unit from surgical standpoint
C/W NGT to LIWS
NPO with ice chips for comfort
C/w IVF
AM labs
IV tylenol atc, prn narcotics. No nsaids given Cr level
VTE ppx with sq heparin
Medical management as per primary team
Subjective Data
-
Date of Service: April 10, 2025
Pt seen and examined at bedside. Denies n/v. Ambulating in hallway. Minimal pain, IV tylenol working well. Not sure if he passed flatus yet but does feel like he might.
Objective Data
-
Intake and Output
04/09/25 04/10/25 04/11/25
06:59 06:59 06:59
Intake Total 3560.0 / 3740.0 510 / 510
Output Total 1350 / 1350 175 / 175
Balance 2210.0 / 2390.0 335 / 335
Intake:
Oral fluids 120 / 120
IV fluids (Total) 2550 / 2650 400 / 400
Nss 1,000 ml @ 100 mls/hr IV . 2500 / 2600 400 / 400
Q10H [facility] Rx#:[id number]
normosol 50 / 50
IV piggybacks 770.0 / 850.0 80 / 80
Amount instilled into GI Tube ( 120 / 120 30 / 30
Total)
[place] Sump 120 / 120 30 / 30
Output:
Gastrointestinal tube output ( 775 / 775
Total)
[place] Sump 775 / 775
Urine, Devine 100 / 100
Urine, Voided 475 / 475 175 / 175
Vital Signs
Temp Pulse Resp BP Pulse Ox
98.1 F 79 24 143/86 98
04/10/25 07:39 04/10/25 09:00 04/10/25 09:00 04/10/25 09:00 04/10/25 09:00
Lab Results
04/10/25 04:11
04/10/25 03:48
Calcium 8.4 mg/dl (8.4-10.2) 04/10/25 03:48
Phosphorus Cancelled 04/09/25 15:01
Magnesium 2.2 mg/dl (1.6-2.3) 04/10/25 03:48
Total Bilirubin 0.5 mg/dl (0.2-1.3) 04/10/25 03:48
AST 17 U/L (17-59) 04/10/25 03:48
ALT 19 U/L (0-50) 04/10/25 03:48
Alkaline Phosphatase 117 U/L (38-126) 04/10/25 03:48
Total Protein 5.1 g/dl (6.3-8.2) L D 04/10/25 03:48
Albumin 2.6 g/dl (3.5-5.0) L 04/10/25 03:48
Physical Exam
-
NAD
ABD soft, nt, nd. Midline incision with intact dressing, minimal shadowing
NGT with bilious outputs
--- NOTE | 2025-04-10 11:18 | CM ---
Reviewed chart and met with pt and his bedside. They live in [place], staying locally with their daughter who lives in [place]. They drove here from [place] and will drive home when he is medically cleared.
In [place], they live in a 2 story home but stay on the first floor, have bedroom and full bath on first floor.
Independent in ADLs, personal care and ambulation at baseline. No assistive devices. They have shower chair and walker in attic at home.
Confirm prescription coverage.
Hx VN, no hx SNF.
Local pharmacy [facility]
Anticipate discharge home, no needs. CM will continue to follow.
[2025-04-10 11:38] LABS: Glucose - Point of Care 153 mg/dl (70-99)
--- NOTE | 2025-04-10 12:11 | PTCARENOTE ---
ambulated in hallway, tolerated. Awaiting med/surg bed.
[2025-04-10] MEDS: NSS 1000 IV ×3 (12:14→20:15)
[2025-04-10] MEDS: OFIRMEV IV (14:25)
[2025-04-10] MEDS: HEPARIN 5000 UNITS SC (15:21)
--- NOTE | 2025-04-10 18:00 | PTCARENOTE ---
No change, resting unless disturbed. Using IS. Fluids continue. Denies nausea, abd soft. aware of timeline to reconnect NG to measure contents. Notes pain very manageable at this time.
[2025-04-10] MEDS: NOVOLOG FLEXPEN-HIGH RESISTANCE 1 UNITS SC (18:04)
[2025-04-10 18:15] LABS: Glucose - Point of Care 117 mg/dl (70-99)
[2025-04-10] MEDS: LANTUS 0.15 UNITS SC (21:02)
[2025-04-10 21:12] LABS: Glucose - Point of Care 123 mg/dl (70-99)
--- NOTE | 2025-04-10 22:42 | PTCARENOTE ---
Assumed care at 1900. NGT unclamped per order with 400 black green output. Transferred to 2102. Belongings sent with patient.
[2025-04-11 00:02] LABS: Glucose - Point of Care 129 mg/dl (70-99)
[2025-04-11] MEDS: ZOSYN 50 IV ×5 (00:19→23:08)
[2025-04-11] MEDS: HEPARIN 5000 UNITS SC ×3 (00:20→15:57)
[2025-04-11] MEDS: NOVOLOG FLEXPEN-HIGH RESISTANCE SC ×4 (00:34→17:51)
--- NOTE | 2025-04-11 01:44 | PTCARENOTE ---
Recieved pt from ICU s/p explarotory lysis of adhesion,midline surgical dressing intact, ngt to LIWS, vs stable.
[2025-04-11] MEDS: OFIRMEV 100 IV ×2 (02:03→08:07)
[2025-04-11 06:00] VITALS: BMI 27.8
[2025-04-11 07:10] VITALS: BP 168/74
[2025-04-11 07:10] LABS: Glucose - Point of Care 97 mg/dl (70-99)
[2025-04-11 07:53] LABS: Hematocrit 27.2 % (39.0-52.0); Hemoglobin 8.8 g/dL (13.0-18.0); Mean Corp Hgb Conc. 32.4 g/dL (33.0-37.0); Mean Corpuscular Volume 87.7 fL (80.0-94.0); Platelet Count 84 10^3/uL (130-400); Red Cell Dist. Width 17.0 % (11.5-14.5)
[2025-04-11 07:56] LABS: Blood Urea Nitrogen 28 mg/dl (9-20); Calcium 8.5 mg/dl (8.4-10.2); Carbon Dioxide 35 mmol/L (22-30); Chloride 107 mmol/L (98-107); Estimated Creatinine Clearance 59 ml/min; Glucose 91 mg/dl (70-99); Magnesium 2.1 mg/dl (1.6-2.3); Potassium 2.9 mmol/L (3.5-5.1); Sodium 141 mmol/L (135-145); eGFR > 60.00
[2025-04-11] MEDS: NSS 1000 IV ×2 (08:04→21:48)
[2025-04-11] MEDS: PROTONIX IV 40 MG IV (08:07)
[2025-04-11] MEDS: FLUSH (NSS) 1 FLUSH IV (08:08)
[2025-04-11] MEDS: NSS (PRESERVATIVE FREE) 10 ML IV (08:08)
--- NOTE | 2025-04-11 10:08 | W.PN.HOSP.TC ---
Today's Communication/Plan
-
See plan
Assessment / Plan
Assessment / Plan
Physical Exam
General: Comfortable and Conversant
HEENT: Normocephalic and Anicteric. NG tube in place.
Respiratory: Clear
Cardiac: S1/S2 and Regular Rhythm
GI: Soft, Non Tender, clean surgical site, not distended.
Musculoskeletal: No Edema
Skin: Warm and Dry
Neuro: AO x 3, non focal
Psych: Calm
Assessment/Plan
74 years old male traveling from [place] who presented with abdominal pain and vomiting for 3 days. He had been traveling from [place] for Thanksgiving presented with vomiting and small bowel obstruction status post exploratory laparotomy and
lysis of adhesion.� No intestinal resection required.� He had acute kidney injury, hypotension, lactic acidosis.�Then he started to do better.
#Sepsis/septic shock due to acute closed loop small bowel obstruction/ small bowel volvulus/ ischemic bowel
s/p Exploratory laparotomy, lysis of adhesions by Dr Small 04/09.
Positive lactic acidosis, now resolved. WBC is coming down. Afebrile
- post op ileus
c/w NG suction
IVF
IV Abx
IV PPI
Pain control as needed -- but no NSAIDs given renal function
Appreciate surgery and ICU doctors help
# Acute on CKD stage IIIb.
Creatinine trend improving; continue hydration and monitor for retention. Holding lisinopril. IV fluid
# Hypokalemia
-Replaced; continue to monitor
# Acute blood loss anemia
# Thrombocytopenia
monitor HGB
c/w PPI
Suspected hemodilution, but check coags, retic count, LDH, CMP
# History of extensive left lower extremity DVT in 2019, has been on 20 mg of Xarelto every day. Holding anticoagulation due to bowel ischemia and surgical intervention. SQ Heparin ordered for now.
# History of BPH, he takes Flomax
#Hypertension, he takes lisinopril 15 mg, titrated by his primary care doctor. Holding for now, add IV as needed hydralazine while n.p.o.
# Diabetes. uncontrolled BS
Increase dose of Lantus on 04/10/25 to 15 units HS, but decrease to 5 units HS on 04/11/25 given very controlled blood sugars, risk for hypoglycemia
c/w SQ NovoLog Q 6
HGB A1C 6.6
He takes Lantus 10 units and short acting NovoLog 5 to 10 units per meal as needed.
# Hypokalemia, replaced
# GI prophylaxis, DVT prophylaxis with PPI & SQ Heparin.
Anticipated Discharge: > 48 hours
Subjective/Interval History
-
Date of Service: April 11, 2025
Patient was seen and examined. He denied any complaints or issues.
Objective Data
-
Labs:
Laboratory Results
04/11/25
07:00
WBC 4.6 L
Hgb 8.8 L
Hct 27.2 L
Plt Count 84 L D
Sodium 141
Potassium 2.9 L
Chloride 107
Carbon Dioxide 35 H
BUN 28 H
Creatinine 1.2
Glucose 91
Calcium 8.5
Vital Signs:
Vital Signs
Temp Pulse Resp BP Pulse Ox
98.1 F 65 15 168/74 95
04/11/25 07:10 04/11/25 07:10 04/11/25 07:10 04/11/25 07:10 04/11/25 07:10
I&O
04/10/25 04/11/25 04/12/25
06:59 06:59 06:59
Intake Total 3560.0 / 3740.0 2900 / 2900
Output Total 1350 / 1350 2675 / 2675 200 / 200
Balance 2210.0 / 2390.0 225 / 225 -200 / -200
--- NOTE | 2025-04-11 10:09 | W.PN.GS2 ---
Today's Communication / Plan
-
Clamp trial
Assessment / Plan
-
74 yo male presenting with closed loop small bowel obstruction with small bowel volvulus now POD #2 ex lap with nandini
AFVSS
Leukocytosis resolved, now mild leukopenia
Cr normalized, hypokalemia noted
Acute anemia noted, suspect secondary to hemodilution as intraoperative blood loss was minimal
Following expected post op course, passing flatus
Plan:
Clamp trial
NPO with ice chips for comfort
C/w IVF
Replete K per Hospitalist
AM labs
IV tylenol atc, prn narcotics. No nsaids given Cr level
VTE ppx with sq heparin
Medical management as per primary team
Subjective Data
-
Date of Service: April 11, 2025
AFVSS, NGT utput light bilious with lots of ice chips, denies n/v, passing flatus, pain controlled, ambulating
Objective Data
-
Intake and Output
04/10/25 04/11/25 04/12/25
06:59 06:59 06:59
Intake Total 3560.0 / 3740.0 2900 / 2900
Output Total 1350 / 1350 2675 / 2675 200 / 200
Balance 2210.0 / 2390.0 225 / 225 -200 / -200
Intake:
Oral fluids 120 / 120
IV fluids (Total) 2550 / 2650 2300 / 2300
Nss 1,000 ml @ 100 mls/hr IV . 2500 / 2600 1500 / 1500
Q10H [facility] Rx#:[id number]
normosol 50 / 50
IV piggybacks 770.0 / 850.0 480 / 480
Amount instilled into GI Tube ( 120 / 120 120 / 120
Total)
[place] Sump 120 / 120 120 / 120
Output:
Gastrointestinal tube output ( 775 / 775 1849 / 1849
Total)
[place] Sump 775 / 775 1849 / 1849
Urine, Myles 100 / 100
Urine, Voided 475 / 475 825 / 825 200 / 200
Other:
Number of approximated MODERATE 1
amounts of urine
Vital Signs
Temp Pulse Resp BP Pulse Ox
98.1 F 65 15 168/74 95
04/11/25 07:10 04/11/25 07:10 04/11/25 07:10 04/11/25 07:10 04/11/25 07:10
Lab Results
04/11/25 07:00
04/11/25 07:00
Calcium 8.5 mg/dl (8.4-10.2) 04/11/25 07:00
Phosphorus 2.6 mg/dl (2.5-4.5) 04/11/25 07:00
Magnesium 2.1 mg/dl (1.6-2.3) 04/11/25 07:00
Total Bilirubin 0.5 mg/dl (0.2-1.3) 04/10/25 03:48
AST 17 U/L (17-59) 04/10/25 03:48
ALT 19 U/L (0-50) 04/10/25 03:48
Alkaline Phosphatase 117 U/L (38-126) 04/10/25 03:48
Total Protein 5.1 g/dl (6.3-8.2) L D 04/10/25 03:48
Albumin 2.6 g/dl (3.5-5.0) L 04/10/25 03:48
Physical Exam
-
Gen: NAd
Abd: soft, nd, minimally ttp, dressing cdi with 2 small areas of strikethrough
Patient has a myles catheter: No
Patient has a central line: No
[2025-04-11] MEDS: KCL 260 MEQ IV (10:42)
[2025-04-11 11:49] LABS: Glucose - Point of Care 98 mg/dl (70-99)
[2025-04-11 15:30] VITALS: BP 172/77
--- NOTE | 2025-04-11 15:38 | CM ---
Patient and seen at bedside on . Patient confirmed they are from [place] and plan is to go to daughter's home after hospitalization and they do not anticipate any SNF need or VN at this time. CM will continue to follow for discharge
planning needs.
Plan; home with no needs watch for possible VN
[2025-04-11] MEDS: DILAUDID 0.5 MG IV (17:21)
[2025-04-11 17:44] LABS: Glucose - Point of Care 72 mg/dl (70-99)
[2025-04-11 21:26] LABS: Blood Urea Nitrogen 25 mg/dl (9-20); Calcium 8.4 mg/dl (8.4-10.2); Carbon Dioxide 32 mmol/L (22-30); Chloride 108 mmol/L (98-107); Estimated Creatinine Clearance 59 ml/min; Glucose 69 mg/dl (70-99); Potassium 3.3 mmol/L (3.5-5.1); Sodium 140 mmol/L (135-145); eGFR > 60.00
[2025-04-11 21:52] LABS: Glucose - Point of Care 65 mg/dl (70-99)
[2025-04-11 22:08] LABS: Glucose - Point of Care 85 mg/dl (70-99)
[2025-04-11] MEDS: APRESOLINE 5 MG IV (23:08)
[2025-04-11 23:23] VITALS: BP 174/69
[2025-04-12 00:06] LABS: Glucose - Point of Care 89 mg/dl (70-99)
[2025-04-12] MEDS: NOVOLOG FLEXPEN-HIGH RESISTANCE SC ×5 (00:08→17:57)
[2025-04-12 00:10] VITALS: BP 168/76
[2025-04-12] MEDS: HEPARIN 5000 UNITS SC (00:11)
[2025-04-12 02:08] LABS: Glucose - Point of Care 86 mg/dl (70-99)
--- NOTE | 2025-04-12 02:14 | PTCARENOTE ---
Pt's blood glucose was 65 at 2150. Pt asymptomatic. Per protocol pt drank 4 oz of clear liquid fruit juice. Blood glucose rechecked in 15 minutes was 85. Blood glucose checks were completed every 2 hours x2 checks and were 89 and 86. Care is
ongoing.
[2025-04-12] MEDS: ZOSYN 50 IV (05:22)
[2025-04-12 05:48] LABS: Glucose - Point of Care 87 mg/dl (70-99)
[2025-04-12] MEDS: NSS 1000 IV ×2 (06:02→21:13)
[2025-04-12 06:11] LABS: Reticulocyte Count 2.5 % (0.4-2.8)
[2025-04-12 06:14] LABS: INR 1.17; PT 15.1 Sec (11.4-14.6)
[2025-04-12 06:15] LABS: APTT 34.7 Sec (23.4-35.0)
[2025-04-12 06:33] LABS: ALT (SGPT) 20 U/L (0-50); AST (SGOT) 17 U/L (17-59); Albumin 2.6 g/dl (3.5-5.0); Alkaline Phosphatase 117 U/L (38-126); Blood Urea Nitrogen 21 mg/dl (9-20); Calcium 8.3 mg/dl (8.4-10.2); Carbon Dioxide 30 mmol/L (22-30); Chloride 110 mmol/L (98-107); Estimated Creatinine Clearance 65 ml/min; Glucose 76 mg/dl (70-99); LDH 190 U/L (120-246); Potassium 3.1 mmol/L (3.5-5.1); Sodium 142 mmol/L (135-145); Total Protein 5.1 g/dl (6.3-8.2); eGFR > 60.00
--- NOTE | 2025-04-12 07:23 | W.PN.HOSP.TC ---
Today's Communication/Plan
-
See plan
Assessment / Plan
Assessment / Plan
Physical Exam
General: Comfortable and Conversant
HEENT: Normocephalic and Anicteric. NG tube in place.
Respiratory: Clear
Cardiac: S1/S2 and Regular Rhythm
GI: Soft, Non Tender, clean surgical site, not distended.
Musculoskeletal: No Edema
Skin: Warm and Dry
Neuro: AO x 3, non focal
Psych: Calm
Assessment/Plan
74 years old male traveling from [place] who presented with abdominal pain and vomiting for 3 days. He had been traveling from [place] for Thanksgiving presented with vomiting and small bowel obstruction status post exploratory laparotomy and
lysis of adhesion.� No intestinal resection required.� He had acute kidney injury, hypotension, lactic acidosis.�Then he started to do better.
#Sepsis/septic shock due to acute closed loop small bowel obstruction/ small bowel volvulus/ ischemic bowel
s/p Exploratory laparotomy, lysis of adhesions by Dr Small 04/09.
Positive lactic acidosis, now resolved. WBC is coming down. Afebrile
- post op ileus
Status post NG tube to suction
Now, advance diet to clear liquids diet, full liquids diet later today
IVF
IV Abx
IV PPI
Pain control as needed -- but no NSAIDs given renal function
Appreciate surgery and ICU doctors help
# Acute on CKD stage IIIb.
Creatinine trend improving; continue hydration and monitor for retention. Holding lisinopril. IV fluid
# Hypokalemia
-Replaced; continue to monitor
# Acute blood loss anemia
# Thrombocytopenia
monitor HGB
c/w PPI
Suspected hemodilution, but coags with mildly elevated PT, reticulocyte count normal, LDH normal, CMP with normal bilirubin
Okay to resume patient's Xarelto
# History of extensive left lower extremity DVT in 2019, has been on 20 mg of Xarelto every day.
-Continue Xarelto -- Dr. Small discussed with me and mentioned okay to resume Xarelto
# History of BPH, he takes Flomax
#Hypertension
-Resume Lisinopril
# Diabetes. uncontrolled BS
Low dose Lantus given very controlled blood sugars, risk for hypoglycemia
HGB A1C 6.6
At home he takes Lantus 10 units and short acting NovoLog 5 to 10 units per meal as needed.
#Recent Eye Catarct Surgeries
-Antibiotic eye drops resumed
# Hypokalemia, replaced
# GI prophylaxis, DVT prophylaxis with PPI & Xarelto
Anticipated Discharge: Within 24 hours
Subjective/Interval History
-
Date of Service: April 12, 2025
Patient was seen and examined. He reported feeling well, denied any bleeding, chest pain, shortness of breath, or any swelling in his legs. He denied any new skin rash. He had a large normal bowel movement today.
Objective Data
-
Labs:
Laboratory Results
04/11/25 04/12/25 04/12/25
20:59 05:18 07:20
WBC Pending
Hgb Pending
Hct Pending
Plt Count Pending
PT 15.1 H
INR 1.17
APTT 34.7
Sodium 140 142
Potassium 3.3 L 3.1 L
Chloride 108 H 110 H
Carbon Dioxide 32 H 30
BUN 25 H 21 H
Creatinine 1.2 1.1
Glucose 69 L 76
Calcium 8.4 8.3 L
Total Bilirubin 0.5
AST 17
ALT 20
Alkaline Phosphatase 117
Vital Signs:
Vital Signs
Temp Pulse Resp BP Pulse Ox
98.2 F 68 17 168/76 96
04/11/25 23:23 04/12/25 00:10 04/11/25 23:23 04/12/25 00:10 04/11/25 23:23
I&O
04/11/25 04/12/25 04/13/25
06:59 06:59 06:59
Intake Total 2900 / 2900 2120 / 2120
Output Total 2675 / 2675 1600 / 1600
Balance 225 / 225 520 / 520
[2025-04-12 07:41] VITALS: BP 166/75
[2025-04-12 07:42] LABS: Hematocrit 27.4 % (39.0-52.0); Hemoglobin 8.7 g/dL (13.0-18.0); Mean Corp Hgb Conc. 31.8 g/dL (33.0-37.0); Mean Corpuscular Volume 88.4 fL (80.0-94.0); Nucleated Red Blood Cells % 0 % (-); Red Cell Dist. Width 16.2 % (11.5-14.5)
--- NOTE | 2025-04-12 07:56 | W.PN.GS2 ---
Today's Communication / Plan
-
Adv diet
Hold SQH
Assessment / Plan
-
74 yo male presenting with closed loop small bowel obstruction with small bowel volvulus now POD #3 ex lap with nandini
AFVSS
Leukocytosis resolved
Thrombocytopenia noted
Cr normalized, hypokalemia noted again
Acute anemia, suspect secondary to hemodilution as intraoperative blood loss was minimal, stable
Following expected post op course, bowel function returning
Plan:
ADV to CLD, fulls later today
C/w IVF
Replete K per Hospitalist
AM labs
IV tylenol atc, prn narcotics. No nsaids given Cr level
VTE ppx with SCDs only, hold heparin in light of thrombocytopenia
Medical management as per primary team
Subjective Data
-
Date of Service: April 12, 2025
AFVSS, feels well, pain contolled, passed clamp trial, passing flatus, denies n/v
Objective Data
-
Intake and Output
04/11/25 04/12/25 04/13/25
06:59 06:59 06:59
Intake Total 2900 / 2900 2120 / 2120
Output Total 2675 / 2675 1600 / 1600
Balance 225 / 225 520 / 520
Intake:
IV fluids (Total) 2300 / 2300 1660 / 1660
Nss 1,000 ml @ 100 mls/hr IV . 1500 / 1500
Q10H [facility] Rx#:[id number]
IV piggybacks 480 / 480 460 / 460
Amount instilled into GI Tube ( 120 / 120
Total)
[place] Sump 120 / 120
Output:
Gastrointestinal tube output ( 1850 / 1850 300 / 300
Total)
[place] Sump 1850 / 1850 300 / 300
Urine, Voided 825 / 825 1300 / 1300
Other:
Number of approximated MODERATE 1
amounts of urine
Vital Signs
Temp Pulse Resp BP Pulse Ox
98.5 F 63 18 166/75 96
04/12/25 07:41 04/12/25 07:41 04/12/25 07:41 04/12/25 07:41 04/12/25 07:41
Lab Results
04/12/25 07:20
04/12/25 05:18
Calcium 8.3 mg/dl (8.4-10.2) L 04/12/25 05:18
Phosphorus 2.6 mg/dl (2.5-4.5) 04/11/25 07:00
Magnesium 2.1 mg/dl (1.6-2.3) 04/11/25 07:00
Total Bilirubin 0.5 mg/dl (0.2-1.3) 04/12/25 05:18
AST 17 U/L (17-59) 04/12/25 05:18
ALT 20 U/L (0-50) 04/12/25 05:18
Alkaline Phosphatase 117 U/L (38-126) 04/12/25 05:18
Total Protein 5.1 g/dl (6.3-8.2) L 04/12/25 05:18
Albumin 2.6 g/dl (3.5-5.0) L 04/12/25 05:18
Physical Exam
-
Gen: NAD
Abd: soft, nd, minimally ttp, incison cdi
Patient has a myles catheter: No
Patient has a central line: No
[2025-04-12] MEDS: KCL 260 MEQ IV (08:03)
[2025-04-12] MEDS: NSS (PRESERVATIVE FREE) 10 ML IV (08:11)
[2025-04-12] MEDS: PROTONIX IV 40 MG IV (08:11)
[2025-04-12 11:08] LABS: Platelet Count 96 10^3/uL (130-400)
[2025-04-12 12:20] LABS: Glucose - Point of Care 156 mg/dl (70-99)
--- NOTE | 2025-04-12 12:58 | OR.RPT ---
Operative Report
Operative Report
Primary Surgeon: Geovanny
Assisting: Iza LLOYD
Pre-op Diagnosis: Closed loop small bowel obstruction
Post-op Diagnosis: Same, small bowel volvulus
Procedure Performed: Exploratory laparotomy, lysis of adhesions
Anesthesia Type: GETA
Specimen / Cultures: None
Estimated Blood Loss: 5cc
Complications: None immediate
Operative Findings: loop gastro-jejunostomy identified; volvulus of small intestine and mid-ileum, adhesive band at terminal ileum; bowel detorsed manually, band adhesion at terminal ileum lysed, bowel run from ligament of treitz to
gastro-jejunostomy and then to terminal ileum, bowel was distended with 3 small areas of patchy ischemia (<25% of circumference) but viable; nasogastric tube palpated in stomach, sepra film deployed
Date of Surgery: 04/09/25
Indications: This 74M developed abdominal pain and on workup was found to have distended small bowel with pneumatosis and portal venous gas concerning for closed loop obstruction with ischemia. Emergent exploratory laparotomy was elected.
Description of procedure: The patient was placed on the operating table in the supine position. General anesthesia was induced. A time-out was completed verifying correct patient, procedure, site, positioning, and special equipment prior to
beginning this procedure. An nasogastric tube was already in place. A myles was placed. The abdomen was prepped and draped in the usual sterile fashion.
A midline incision was made with cut cautery and the the abdomen was entered. Distended small bowel was observed, no significant free fluid was identified. The bowel appeared viable. Limited lysis of adhesions with metzenbaum kerline was performed to
delineate the anatomy. The afferent limb of the gastrojejunostomy was identified in antecolic position and traced to the ligament of treitz. The efferent limb was identified and traced to an area of volvulized midgut that was dilated. No significant
adhesions were noted in this area. The bowel was eviscerated and a volvulus at the root of the mesentery was noted with tension leading to the terminal ileum where an adhesive band was located. The band was lysed and the bowel was tetorsed. The
bowel was then run from terminal ileum back tot he stomach and ultimately to the ligament of treitz. All appeared viable. There were 3 limited areas of dark patchy ischemia encompassing less than 25% of the circumference. These areas were observed
exhibiting peristaltic motion. The bowel was run again. A small serosal injury, expected from the procedure was identified where the band was lysed, this was repaired with 2-0 vicryl suture. The nasogastric tube was palpated in the stomach. The
bowel was returned to the abdomen and seprafilm was placed. The fascia was closed with #1 PDS stratafix and the skin was closed with more. Mepilex dressing was applied.
The patient tolerated the procedure well and was taken to the postanesthesia care unit in stable condition.
The assistance of Iza LLOYD was required due to the complexity of the procedure. During the procedure she assisted with retraction, resection, and closure of the wound.
[2025-04-12 15:35] VITALS: BP 181/85
[2025-04-12 16:51] LABS: Glucose - Point of Care 161 mg/dl (70-99)
[2025-04-12] MEDS: XARELTO 20 MG PO (17:57)
[2025-04-12] MEDS: ZESTRIL 15 MG PO (19:50)
[2025-04-12] MEDS: OCUFLOX 1 DROP BOTH EYES ×2 (19:50→22:01)
[2025-04-12] MEDS: FLOMAX 0.4 MG PO (19:51)
[2025-04-12 21:07] LABS: Potassium 3.3 mmol/L (3.5-5.1)
[2025-04-12 21:39] LABS: Glucose - Point of Care 242 mg/dl (70-99)
[2025-04-12] MEDS: LANTUS 0.02 UNITS SC (22:01)
[2025-04-12 23:10] VITALS: BP 167/72
[2025-04-12] MEDS: KCL 20 MEQ PO (23:10)
[2025-04-12] MEDS: APRESOLINE 5 MG IV (23:10)
[2025-04-13] VITALS (10 sets, daily range): BP systolic 160–191; BP diastolic 70–94
[2025-04-13 06:59] LABS: Hematocrit 27.0 % (39.0-52.0); Hemoglobin 8.7 g/dL (13.0-18.0); Mean Corp Hgb Conc. 32.2 g/dL (33.0-37.0); Mean Corpuscular Volume 86.3 fL (80.0-94.0); Platelet Count 91 10^3/uL (130-400); Red Cell Dist. Width 15.7 % (11.5-14.5)
[2025-04-13 07:41] LABS: Blood Urea Nitrogen 12 mg/dl (9-20); Calcium 8.5 mg/dl (8.4-10.2); Carbon Dioxide 28 mmol/L (22-30); Chloride 108 mmol/L (98-107); Estimated Creatinine Clearance 89 ml/min; Glucose 151 mg/dl (70-99); Potassium 3.7 mmol/L (3.5-5.1); Sodium 136 mmol/L (135-145); eGFR > 60.00
--- NOTE | 2025-04-13 08:05 | W.PN.HOSP.TC ---
Addendum entered and electronically signed by Martin Garza MD 04/13/25 20:50:
I confirmed (via [facility]) with Dr. Small, surgeon, that patient does not need any antibiotics on discharge. Blood culture negative, leukocytosis resolved, patient is doing well without antibiotics.
Original Note:
Today's Communication/Plan
-
BP was very high
Possible discharge later this evening if patient's blood pressure improves
Assessment / Plan
Assessment / Plan
Physical Exam
General: Comfortable and Conversant
HEENT: Normocephalic and Anicteric. NG tube in place.
Respiratory: Clear
Cardiac: S1/S2 and Regular Rhythm
GI: Soft, Non Tender, clean surgical site, not distended.
Musculoskeletal: No Edema
Skin: Warm and Dry
Neuro: AO x 3, non focal
Psych: Calm
Assessment/Plan
74 years old male traveling from [place] who presented with abdominal pain and vomiting for 3 days. He had been traveling from [place] for Thanksgiving presented with vomiting and small bowel obstruction status post exploratory laparotomy and
lysis of adhesion.� No intestinal resection required.� He had acute kidney injury, hypotension, lactic acidosis.�Then he started to do better.
#Sepsis/septic shock due to acute closed loop small bowel obstruction/ small bowel volvulus/ ischemic bowel
s/p Exploratory laparotomy, lysis of adhesions by Dr Small 04/09.
Positive lactic acidosis, now resolved. WBC is coming down. Afebrile
- post op ileus
Status post NG tube to suction
Tolerating low residue diet now
Pain control as needed -- but no NSAIDs given renal function
Appreciate surgery and ICU doctors help
# Acute on CKD stage IIIb.
Resolved
# Hypokalemia
-Replaced; continue to monitor
# Acute blood loss anemia
# Thrombocytopenia
monitor HGB
c/w PPI
Suspected hemodilution, but coags with mildly elevated PT, reticulocyte count normal, LDH normal, CMP with normal bilirubin
Okay to resume patient's Xarelto
# History of extensive left lower extremity DVT in 2019, has been on 20 mg of Xarelto every day.
-Continue Xarelto -- Dr. Small discussed with me and mentioned okay to resume Xarelto
# History of BPH, he takes Flomax
#History of Prostate Cancer
-Previously received radiation
#History of Biliary Stent
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
#Cholecystectomy
#History of Pancreatitis
#Hypertension
#Hypertensive Urgency
-Resumed Lisinopril 04/13/25
-Added Amlodipine 5 mg BID due to worsened/persistent hypertension
-Low sodium diet
-Will try to avoid loop or thiazide diuretics for HTN especially with gout history and pancreatitis
# Diabetes. uncontrolled BS
Low dose Lantus given very controlled blood sugars, risk for hypoglycemia
HGB A1C 6.6
At home he takes Lantus 10 units and short acting NovoLog 5 to 10 units per meal as needed.
#Recent Eye Catarct Surgeries
-Antibiotic eye drops resumed
# Hypokalemia, replaced
# GI prophylaxis, DVT prophylaxis with PPI & Xarelto
History of gout
-Will try to avoid loop or thiazide diuretics for HTN especially with gout history and pancreatitis
Anticipated Discharge: Within 24 hours
Subjective/Interval History
-
Date of Service: April 13, 2025
Patient was seen and examined. He reported feeling good, denied any new symptoms or complaints.
Objective Data
-
Labs:
Laboratory Results
04/12/25 04/13/25
19:58 06:17
WBC 3.2 L
Hgb 8.7 L
Hct 27.0 L
Plt Count 91 L
Sodium 136
Potassium 3.3 L 3.7
Chloride 108 H
Carbon Dioxide 28
BUN 12
Creatinine 0.8
Glucose 151 H
Calcium 8.5
Vital Signs:
Vital Signs
Temp Pulse Resp BP Pulse Ox
98.0 F 76 16 191/90 92
04/13/25 07:00 04/13/25 07:00 04/13/25 07:00 04/13/25 07:00 04/13/25 07:00
I&O
04/12/25 04/13/25 04/14/25
06:59 06:59 06:59
Intake Total 2120 / 2120 2760 / 2760
Output Total 1600 / 1600 820 / 820
Balance 520 / 520 1940 / 194
[2025-04-13 08:08] LABS: Glucose - Point of Care 160 mg/dl (70-99)
[2025-04-13] MEDS: OCUFLOX 1 DROP BOTH EYES ×3 (08:22→17:24)
[2025-04-13] MEDS: NSS (PRESERVATIVE FREE) 10 ML IV (08:22)
[2025-04-13] MEDS: ZESTRIL 15 MG PO (08:23)
[2025-04-13] MEDS: PROTONIX IV 40 MG IV (08:23)
[2025-04-13] MEDS: VITAMIN D3 (cholecalciferol) 25 MCG PO (08:23)
[2025-04-13] MEDS: KCL 40 MEQ PO (08:30)
[2025-04-13] MEDS: NORVASC 5 MG PO ×2 (11:39→19:36)
[2025-04-13] MEDS: NSS IV (11:39)
--- NOTE | 2025-04-13 12:00 | W.PN.GS2 ---
Today's Communication / Plan
-
DC
Assessment / Plan
-
74 yo male presenting with closed loop small bowel obstruction with small bowel volvulus now POD #4 ex lap with nandini
AFVSS
Leukocytosis resolved
Thrombocytopenia noted
Cr normalized, hypokalemia resolved
Acute anemia, suspect secondary to hemodilution as intraoperative blood loss was minimal, stable
Following expected post op course, bowel function returning
Plan:
OK for DC home from surgical standpoint
Medical management as per primary team
Subjective Data
-
Date of Service: April 13, 2025
AFVSS, ambulating, voiding, passing flatus, anette LRD, pain controlled
Objective Data
-
Intake and Output
04/12/25 04/13/25 04/14/25
06:59 06:59 06:59
Intake Total 2120 / 2120 2760 / 2760
Output Total 1600 / 1600 820 / 820
Balance 520 / 520 1940 / 1940
Intake:
Oral fluids 660 / 660
IV fluids (Total) 1660 / 1660 1840 / 1840
IV piggybacks 460 / 460 260 / 260
Output:
Gastrointestinal tube output ( 300 / 300
Total)
Fentress Sump 300 / 300
Urine, Voided 1300 / 1300 820 / 820
Other:
Number of approximated SMALL 1
amounts of urine
Number of approximated MODERATE 3
amounts of urine
Vital Signs
Temp Pulse Resp BP Pulse Ox
97.8 F 68 16 178/82 94
04/13/25 11:00 04/13/25 11:39 04/13/25 11:00 04/13/25 11:39 04/13/25 11:00
Lab Results
04/13/25 06:17
04/13/25 06:17
Calcium 8.5 mg/dl (8.4-10.2) 04/13/25 06:17
Phosphorus 2.6 mg/dl (2.5-4.5) 04/11/25 07:00
Magnesium 2.1 mg/dl (1.6-2.3) 04/11/25 07:00
Total Bilirubin 0.5 mg/dl (0.2-1.3) 04/12/25 05:18
AST 17 U/L (17-59) 04/12/25 05:18
ALT 20 U/L (0-50) 04/12/25 05:18
Alkaline Phosphatase 117 U/L (38-126) 04/12/25 05:18
Total Protein 5.1 g/dl (6.3-8.2) L 04/12/25 05:18
Albumin 2.6 g/dl (3.5-5.0) L 04/12/25 05:18
Physical Exam
-
Gen: NAD
Abd: soft, minimal ttp, incision cdi with more
Patient has a myles catheter: No
Patient has a central line: No
[2025-04-13 12:33] LABS: Glucose - Point of Care 220 mg/dl (70-99)
--- NOTE | 2025-04-13 16:15 | CM ---
POD #4 small bowel obstruction with volvulus; explor laparotomy with lysis of adhesions. Discharge POC: To daughter's home with no additional skilled services.
[2025-04-13] MEDS: FLOMAX 0.4 MG PO (17:23)
[2025-04-13] MEDS: XARELTO 20 MG PO (17:23)
--- NOTE | 2025-04-13 21:44 | PTCARENOTE ---
Discussed discharge instructions with patient and patient's . All questions answered. Pt and verbalized that they will go home to [place] and have primary order labs, have labs done on Friday. Also discussed this with hospitalist.
Patient's removed all personal belongings from room.
--- NOTE | 2025-04-14 09:02 | CM ---
Patient was medically cleared for discharge on 04/13/25 to daughter's home with no additional skilled services.
== END 2025-04-13 21:40 | disposition home or self-care (01) | DRG 853 ==
LOC: 2 SOUTH 11:26
PROVIDERS: Registered Nurse; ADMITTING PHYSICIAN Internal Medicine; ATTENDING PHYSICIAN Hospitalist; CONSULT PHYSICIAN Internal Medicine Critical Care Medicine; CONSULT PHYSICIAN Surgery; EMERGENCY PHYSICIAN Emergency Medicine
PROC: 0DNB0ZZ Release Ileum, Open Approach (ICD-10-PCS; 2025-04-09)
DX: A41.9 Sepsis, unspecified organism (principal); K55.019 Acute (reversible) ischemia of small intestine, extent unspecified; K56.2 Volvulus; R65.21 Severe sepsis with septic shock; K83.1 Obstruction of bile duct; D62 Acute posthemorrhagic anemia; K56.699 Other intestinal obstruction unspecified as to partial versus complete obstruction; E87.20 Acidosis, unspecified; K86.3 Pseudocyst of pancreas; N17.9 Acute kidney failure, unspecified; I16.0 Hypertensive urgency; K66.0 Peritoneal adhesions (postprocedural) (postinfection); E11.65 Type 2 diabetes mellitus with hyperglycemia; N40.0 Benign prostatic hyperplasia without lower urinary tract symptoms; I12.9 Hypertensive chronic kidney disease with stage 1 through stage 4 chronic kidney disease, or unspecified chronic kidney disease; N18.32 Chronic kidney disease, stage 3b; E87.6 Hypokalemia; E11.22 Type 2 diabetes mellitus with diabetic chronic kidney disease; Z79.4 Long term (current) use of insulin; Z79.899 Other long term (current) drug therapy; Z79.01 Long term (current) use of anticoagulants; Z86.711 Personal history of pulmonary embolism; Z86.718 Personal history of other venous thrombosis and embolism; Z87.442 Personal history of urinary calculi; Z87.891 Personal history of nicotine dependence; D69.6 Thrombocytopenia, unspecified; Z85.46 Personal history of malignant neoplasm of prostate
CPT/HCPCS: 43752; 71045; 74177; 80048; 80053; 82962; 83036; 83605; 83615; 83690; 83735; 84100; 84132; 85014; 85018; 85025; 85027; 85045; 85610; 85730; 86850; 86900; 86901; 87040; 93005; 96374; 96375; 96376; 99291; C1776; Q9967